=== PATIENT | female | born 1990 | race Caucasian/White ===

== ENCOUNTER 2017-02-13 10:10 | Inpatient (IN) | payer BC ==
[~2017-02-13] VITALS: Ht 172.7 cm; Wt 101.4 kg
[~2017-02-13 10:10] MED LIST: MOTRIN 600600 MG/TAB PO; PERCOCET 325 MG1 TA2 PO
[2017-04-05] VITALS (20 sets, daily range): BP systolic 114–158; BP diastolic 65–89; PULSE 69–110; TEMP 97.6–98.5
[2017-04-05 06:45] LABS: BASO # 0.1 (0.0-0.2); BASO % 0.7 % (0.0-2.0); EOS # 0.4 (0.0-0.7); EOS % 3.6 % (0-4.0); GRAN # 5.7 (1.4-6.5); GRAN % 56.9 % (42.2-75.2); HEMOGLOBIN 12.3 g/dl (12.5-16.0); LYMPH # 3.1 (1.2-3.4); LYMPH % 31.1 % (20.0-51.0); MEAN CELL VOLUME 88 fl (80.0-100.0); MEAN CORPUSCULAR HEMOGLOBIN 30 pg (27.0-31.0); MEAN CORPUSCULAR HGB CONC 34 g/dl (33.0-37.0); MEAN PLATELET VOLUME 11.9 fl (7.4-10.4); MONO # 0.7 (0.1-0.6); MONO % 7.3 % (1.7-9.3); PLATELET COUNT 193 K/mm3 (130-400); RED BLOOD COUNT 4.13 M/mm3 (4.10-5.30); REDCELL DISTRIBUTION WIDTH-CV 13.2 % (11.5-14.5); WHITE BLOOD COUNT 10.1 K/mm3 (4.8-10.8)
[2017-04-05] MEDS ORDERED: PRENATAL (06:47)
[2017-04-05 06:56] LABS: HEMATOCRIT 36.3 % (37.0-47.0)
[2017-04-05 15:12] LABS: BASO # 0.1 (0.0-0.2); BASO % 0.4 % (0.0-2.0); GRAN # 18.9 (1.4-6.5); GRAN % 88.4 % (42.2-75.2); LYMPH # 1.3 (1.2-3.4); MEAN CELL VOLUME 89 fl (80.0-100.0); MEAN CORPUSCULAR HGB CONC 34 g/dl (33.0-37.0); MEAN PLATELET VOLUME 11.2 fl (7.4-10.4); MONO % 4.8 % (1.7-9.3); PLATELET COUNT 179 K/mm3 (130-400); RED BLOOD COUNT 3.76 M/mm3 (4.10-5.30); REDCELL DISTRIBUTION WIDTH-CV 13.2 % (11.5-14.5)
[2017-04-05 15:17] LABS: HEMATOCRIT 33.6 % (37.0-47.0); HEMOGLOBIN 11.3 g/dl (12.5-16.0); MEAN CORPUSCULAR HEMOGLOBIN 30 pg (27.0-31.0); WHITE BLOOD COUNT 21.3 K/mm3 (4.8-10.8)
[2017-04-06 03:04] VITALS: BP 130/70; PULSE 79; TEMP 97.6
[2017-04-06 08:30] VITALS: BP 136/83; PULSE 91; TEMP 97.6
[2017-04-06 16:30] VITALS: BP 142/81; PULSE 87; TEMP 97.7
[2017-04-06 19:03] VITALS: BP 144/74; PULSE 95; TEMP 97.5
[2017-04-07 05:30] VITALS: BP 127/79; PULSE 80
[2017-04-07 07:36] VITALS: BP 135/81; PULSE 81; TEMP 98.2
[2017-04-07] MEDS ORDERED: PERCOCET 325 MG1 TA2 PO (08:55)
[2017-04-07] MEDS ORDERED: IBU600 MG PO (08:55)
[2017-04-07 16:20] VITALS: BP 147/93; PULSE 83; TEMP 97.8
[2017-04-07 19:50] VITALS: BP 139/79; PULSE 74
[2017-04-08 08:30] VITALS: BP 136/87; PULSE 85; TEMP 98.2
== END 2017-04-08 10:00 | disposition home or self-care (01) | DRG 766 ==
LOC: OB 04-05 05:45 → LDR 04-05 06:48 → EDSTATUS 04-07 06:47 → LDRO 04-07 10:10 → OB 04-08 10:00
PROVIDERS: Obstetrics & Gynecology
PROC: 10D00Z1 Extraction of Products of Conception, Low, Open Approach (ICD-10-PCS; principal; 2017-04-05)
DX: O34.211 Maternal care for low transverse scar from previous cesarean delivery (principal); N85.8 Other specified noninflammatory disorders of uterus; Z3A.39 39 weeks gestation of pregnancy; Z37.0 Single live birth
CPT/HCPCS: J0690; J1885; J2270; J2370; J2405; J2550; J2590; J7120